=== PATIENT | female | born 1930 | race Caucasian/White ===

== ENCOUNTER 2017-06-30 23:47 | Emergency (ER) | payer OTHER ==
[~2017-06-30] VITALS: Ht 152.4 cm; Wt 48.5 kg
--- NOTE | ~2017-06-30 | EKG ---
[place] [address] [facility] [place] [address] ELECTROCARDIOGRAM REPORT Name: ESVIN URIBE Room #: [facility] Martell#: [id number] Admission: 06/30/17 Attend Phys: Discharge: 07/01/17 Date of : [birth year] Report #: [id number] THIS REPORT FOR: //name// [facility] ED Test Date: 2017-06-30 Test Time: 23:53:53 Pat Name: ESVIN URIBE Department: Room: Gender: F Field Cane Scaler: Violeta BURRELL : 1930 Requested By: Harvinder Starr Order Number: [id number] MD: Galo Wyatt Measurements Intervals [place] Rate: 87 P: 20 AL: 129 QRS: 72 QRSD: 127 T: 10 QT: 405 QTc: 488 Interpretive Statements Sinus rhythm Ventricular bigeminy Right bundle branch block Compared to ECG 02/21/2014 04:14:04 Ventricular premature complex(es) now present Right bundle-branch block now present Incomplete right bundle-branch block no longer present Electronically Signed On 07-04-2017 21:56:28 CDT by Galo Wyatt [email or web address] <ELECTRONICALLY SIGNED> By: Galo Wyatt MD 07/04/17 [id number] Galo Wyatt MD /EPI
[~2017-06-30 23:47] MED LIST: ACIPHEX; ADULT LOW DOSE81 MG PO; HEARTBURN RELIE15 MG PO; LEVOBUNOLOL OP; NORCO 5-325 TA1 EACH PO; OMEGA-31000 MG PO; RANITIDINE; RED YEAST RICE600 MG PO; VITAMIN D1000 UNI1 PO
[2017-07-01 00:35] LABS: ABSOLUTE NEUTROPHILS 7.8 thou/uL (1.4-8.2); BASOPHILS 0.4 % (0.0-2.0); HEMATOCRIT 40.5 % (37.0-47.0); HEMOGLOBIN 13.7 gm/dL (12.0-15.0); LYMPHOCYTES 16.6 % (24.0-44.0); MCH 34.4 pg (26.0-34.0); MCHC 33.8 g/dL (28.0-37.0); MCV 101.8 fL (80.0-100.0); MONOCYTES 6.1 % (1.0-8.0); PLATELET COUNT 174 thou/uL (150-400); POLYS 74.9 % (36.0-66.0); RBC 3.98 mil/uL (4.20-5.00); RDW 14.1 % (10.5-14.5); WBC 10.3 thou/uL (4.0-11.0)
[2017-07-01 00:38] LABS: MANUAL DIFF NO
[2017-07-01 00:42] LABS: ANION GAP 9 mmol/L (7-16); BUN 19 mg/dL (7-18); CALCIUM 8.7 mg/dL (8.5-10.1); CHLORIDE 106 mmol/L (98-107); CO2 28 mmol/L (21-32); CREATININE 0.6 mg/dL (0.6-1.0); GLUCOSE 177 mg/dL (74-106); POTASSIUM 3.6 mmol/L (3.5-5.1); SODIUM 143 mmol/L (136-145)
[2017-07-01 00:50] LABS: PROTIME 10.1 Seconds (9.3-11.4)
[2017-07-01 01:08] LABS: ALBUMIN 3.4 g/dL (3.4-5.0); ALKALINE PHOSPHATASE 75 U/L (46-116); CK-MB MASS 2.6 ng/mL (<0.5-3.6); MAGNESIUM 2.1 mg/dL (1.8-2.4); NT-PRO BRAIN NAT PEPTIDE 281 pg/mL (<300); SGOT 20 U/L (15-37); SGPT 22 U/L (30-65); TOTAL BILIRUBIN 0.3 mg/dL (<0.1-1.0); TOTAL PROTEIN 6.4 g/dL (6.4-8.2); TROPONIN-I < 0.04 ng/mL (<0.04-0.07)
[2017-07-01] MEDS ORDERED: PRILOSEC 20 MG20 MG PO (01:51)
[2017-07-01 02:15] VITALS: BP 139/63
== END 2017-07-01 02:16 | disposition home or self-care (01) ==
LOC: ER 23:47
PROVIDERS: Emergency Medicine
DX: R07.9 Chest pain, unspecified (principal); K21.9 Gastro-esophageal reflux disease without esophagitis; K44.9 Diaphragmatic hernia without obstruction or gangrene; F17.210 Nicotine dependence, cigarettes, uncomplicated; F10.10 Alcohol abuse, uncomplicated